=== PATIENT | female | born 1950 | race Caucasian/White ===

== ENCOUNTER 2017-12-12 11:05 | Emergency (ER) | payer MEDICARE, BC ==
[~2017-12-12] VITALS: Ht 154.9 cm; Wt 73.0 kg
[~2017-12-12 11:05] MED LIST: AMI25T PO; ASPI-1265 PO; CLON-527 PO; COL100C PO; INSU100I5 SQ; ZOLP5TAB8 PO
[2017-12-12 11:10] VITALS: BP 116/69
[2017-12-12] MEDS ORDERED: naproxen sodium 220mg tablet PO SCH (12:00)
== END 2017-12-12 12:15 | disposition home or self-care (01) ==
LOC: ER 11:07
DX: S63.91XA Sprain of unspecified part of right wrist and hand, initial encounter (principal); Z88.2 Allergy status to sulfonamides; Z88.5 Allergy status to narcotic agent; Z79.899 Other long term (current) drug therapy; W01.0XXA Fall on same level from slipping, tripping and stumbling without subsequent striking against object, initial encounter; Y93.89 Activity, other specified; Y92.89 Other specified places as the place of occurrence of the external cause; Y99.8 Other external cause status
CPT/HCPCS: 73130; 99284; A6449; A4565